=== PATIENT | male | born 1990 | race Caucasian/White ===

== ENCOUNTER → 2020-08-03 | Outpatient (CLI) | payer OTHER ==
--- NOTE | 2020-08-03 12:15 | US ---
EXAMINATION TYPE: US kidneys/renal and bladder DATE OF EXAM: 08/03/2020 COMPARISON: NONE CLINICAL HISTORY: Flank Pain R10.9, N50.8 pain in L scrotal area. Left flank pain. 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 EXAM MEASUREMENTS: Right Kidney: 15.8 x 6.7 x 6.7 cm Right Kidney: No hydronephrosis or masses seen. Appears enlarged in size. Left Kidney: No visualized. LLQ imaged. Bladder: Is not greatly distended, anechoic Bilateral Jets not seen When scanning right kidney adjacent liver is heterogeneously hyperechoic. Compensatory hypertrophy ri ght kidney noted. Bladder not greatly distended. Distal right ureter jet is not identified. IMPRESSION: No hydronephrosis in the solitary right kidney.
--- NOTE | 2020-08-03 12:51 | US ---
EXAMINATION TYPE: US scrotum with doppler. Grayscale and color Doppler Duplex imaging performed of t he scrotum. DATE OF EXAM: 08/03/2020 COMPARISON: CLINICAL HISTORY: Flank Pain R10.9, N50.8 pain in L scrotal area. Left flank pain and testicle tightn ess. EXAM MEASUREMENTS: TESTICLES: Right Testicle: 4.4 x 3.9 x 3.0 cm Left Testicle: 5.0 x 4.0 x 4.0 cm EPIDIDYMIS HEAD: Right Epididymis: 0.9 x 0.7 x 0.7 cm Left Epididymis: 0.9 x 0.8 x 0.7 cm Doppler performed to assess for testicular vascularity; good bilateral color flow and waveforms are s een. Presence of hydroceles: Right Presence of varicoceles: No Medial lower pole complex lesion visualized in left testicle = 0.5 x 0.5 x 0.3 cm. Cystic lesion in left epididymal head = 0.3 x 0.3 x 0.4 cm Testicles are symmetric in size. Left testicle shows a 5 mm well-circumscribed cystic lesion with inc reased through transmission that has internal debris or solid material without vascularity. Compariso n view shows symmetric blood flow to both testicles. IMPRESSION: No suspicious increased or decreased blood flow to left testicle. A 5 mm mixed solid and cystic avascular lesion left testicle, advise fat minimal short-term follow-up ultrasound in 3-6 adela hs time to reassess.
== END | disposition home or self-care (01) ==
LOC: RADUSWWP 11:45
PROVIDERS: ATTEND Urology
DX: N50.89 Other specified disorders of the male genital organs (principal); R10.9 Unspecified abdominal pain
CPT/HCPCS: 76770; 76870; 93975

== ENCOUNTER → 2020-11-13 | Outpatient (CLI) | payer OTHER ==
--- NOTE | 2020-11-13 14:02 | US ---
EXAMINATION TYPE: US scrotum with doppler. Grayscale and color Doppler Duplex imaging performed of t germán scrotum. 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 F/U lesion within left testicle EXAM MEASUREMENTS: TESTICLES: Right Testicle: 4.4 x 2.5 x 4.1 cm Left Testicle: 4.7 x 2.6 x 3.9 cm EPIDIDYMIS HEAD: Right Epididymis: 1.0 cm Left Epididymis: 0.9 cm Doppler performed to assess for testicular vascularity; good bilateral color flow and waveforms are s een. There is no evidence of testicular torsion. Presence of hydroceles: Small amount of fluid lower pole of right testicle Presence of varicoceles: No Persistent mixed lesion lower left testicle= 0.6 x 0.4 x 0.4 cm/ previous measurement= 0.5 x 0.3 x 0.5 cm IMPRESSION: 1. Stable nonspecific mixed lesion left testicle.
== END | disposition home or self-care (01) ==
LOC: RADUSWWP 13:00
PROVIDERS: ATTEND Family Medicine
DX: Q55.29 Other congenital malformations of testis and scrotum (principal)
CPT/HCPCS: 76870; 93975

== ENCOUNTER → 2022-09-20 | Outpatient (CLI) | payer OTHER ==
--- NOTE | 2022-09-20 12:57 | US ---
EXAMINATION TYPE: US scrotum with doppler. Grayscale and color Doppler Duplex imaging performed of t he scrotum. DATE OF EXAM: 09/20/2022 COMPARISON: Scrotal ultrasound 11/13/2020, 08/03/2020. 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 Follow up testicular lesion per patien t. EXAM MEASUREMENTS: TESTICLES: Right Testicle: 4.5 x 3.9 x 2.5 cm Left Testicle: 4.7 x 4.2 x 3.0 cm EPIDIDYMIS HEAD: Right Epididymis: 0.9x 1.0 x 1.0 cm Left Epididymis: 0.9 x 0.7 x 0.6 cm Doppler performed to assess for testicular vascularity; good bilateral color flow and waveforms are s een. There is no evidence of testicular torsion. Presence of hydroceles: Right Presence of varicoceles: no Left lower hypoechoic testicular lesion - 0.4 x 0.4 x 0.3 cm, nonvascular. This previously measured 0 .6 x 0.4 x 0.4 cm and is stable from prior exam. IMPRESSION: Stable nonspecific hypoechoic 0.4 cm left testicular lesion dating back to 08/03/2020 exam.
== END | disposition home or self-care (01) ==
LOC: RADUSWWP 12:13
PROVIDERS: ATTEND Urology
DX: N50.89 Other specified disorders of the male genital organs (principal)
CPT/HCPCS: 76870; 93975

== ENCOUNTER → 2023-09-20 | Outpatient (CLI) | payer OTHER ==
--- NOTE | 2023-09-21 17:49 | US ---
EXAMINATION TYPE: US scrotum with doppler. TECHNIQUE: Grayscale and color Doppler Duplex imaging performed of the scrotum. 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 Doppler performed to assess for testicular vascularity; good bilateral color flow and waveforms are s een. There is no evidence of testicular torsion. EPIDIDYMIS HEAD: Right Epididymis: 0.8 cm Left Epididymis: 0.6 cm Presence of hydroceles: Small on the right with a tiny 4 mm scrotal yoni. Presence of varicoceles: Veins appear dilated on bilateral sides IMPRESSION: 1. No sonographic evidence for testicular torsion or testicular mass. The aerial applicator pilot reports a sligh tly heterogeneous appearance to the testicular parenchyma but this is not depicted on the provided im ages. 2. Small right hydrocele. 3. Very small bilateral varicoceles.
== END | disposition home or self-care (01) ==
LOC: RADUSWWP 16:57
PROVIDERS: ATTEND Family Medicine
DX: Q55.29 Other congenital malformations of testis and scrotum (principal); N43.3 Hydrocele, unspecified; I86.1 Scrotal varices
CPT/HCPCS: 76870; 93975